=== PATIENT | male | born 1970 | race Two or more races ===

== ENCOUNTER 2019-12-05 07:49 | Outpatient (CLI) | payer OTHER | END 2019-12-05 10:42 | disposition home or self-care (01) | LOC: LAB 07:49 | DX: N40.1 Benign prostatic hyperplasia with lower urinary tract symptoms (principal); R10.84 Generalized abdominal pain; R78.9 Finding of unspecified substance, not normally found in blood; K85.92 Acute pancreatitis with infected necrosis, unspecified; E78.2 Mixed hyperlipidemia ==

== ENCOUNTER 2019-12-05 08:23 | Outpatient (CLI) | payer OTHER | END 2019-12-05 08:30 | disposition home or self-care (01) | LOC: TOM 08:23 | DX: R10.84 Generalized abdominal pain (principal); K57.32 Diverticulitis of large intestine without perforation or abscess without bleeding ==

== ENCOUNTER 2020-06-12 15:35 | Outpatient (CLI) | payer OTHER | END 2020-06-12 18:00 | disposition home or self-care (01) | LOC: LAB 15:35 | DX: Z03.818 Encounter for observation for suspected exposure to other biological agents ruled out (principal) ==

== ENCOUNTER → 2020-07-05 08:28 | Outpatient (CLI) | payer OTHER | END | disposition home or self-care (01) | LOC: LAB 08:28 | DX: Z20.818 Contact with and (suspected) exposure to other bacterial communicable diseases (principal); R05 Cough ==

== ENCOUNTER 2021-06-04 08:00 | Outpatient (CLI) | payer OTHER | END 2021-06-04 08:30 | disposition home or self-care (01) | LOC: PPH VACUNA 08:00 | PROVIDERS: ATTEND Emergency Medicine Pediatric Emergency Medicine | DX: Z23 Encounter for immunization (principal) ==

== ENCOUNTER 2021-06-04 15:57 | Outpatient (CLI) | payer OTHER | END 2021-06-04 16:02 | disposition home or self-care (01) | LOC: LAB 15:57 | DX: Z03.818 Encounter for observation for suspected exposure to other biological agents ruled out (principal) ==

== ENCOUNTER 2022-06-29 18:31 | Emergency (ER) | payer OTHER ==
[~2022-06-29] VITALS: Ht 165.1 cm; Wt 80.3 kg
== END 2022-06-29 20:37 | disposition home or self-care (01) ==
LOC: ER 18:31
DX: S61.221A Laceration with foreign body of left index finger without damage to nail, initial encounter (principal); W25.XXXA Contact with sharp glass, initial encounter; Y93.89 Activity, other specified; Y92.89 Other specified places as the place of occurrence of the external cause

== ENCOUNTER 2022-07-06 10:13 | Emergency (ER) | payer OTHER ==
[~2022-07-06] VITALS: Ht 167.6 cm; Wt 68.0 kg
== END 2022-07-06 12:32 | disposition home or self-care (01) ==
LOC: ER 10:13
DX: Z48.02 Encounter for removal of sutures (principal)

== ENCOUNTER 2023-02-17 11:07 | Emergency (ER) | payer OTHER ==
[~2023-02-17] VITALS: Ht 165.1 cm; Wt 79.8 kg
== END 2023-02-17 13:08 | disposition home or self-care (01) ==
LOC: ER 11:07
DX: S92.514A Nondisplaced fracture of proximal phalanx of right lesser toe(s), initial encounter for closed fracture (principal); X58.XXXA Exposure to other specified factors, initial encounter; Y93.89 Activity, other specified; Y92.89 Other specified places as the place of occurrence of the external cause; Y99.9 Unspecified external cause status

== ENCOUNTER 2025-03-26 19:59 | Emergency (ER) | payer OTHER ==
[~2025-03-26] VITALS: Ht 165.1 cm; Wt 72.6 kg
[2025-03-26] MEDS ORDERED: ACETAMINOPHEN 500 MG GEL..CAP PO ONE (21:45)
[2025-03-26] MEDS ORDERED: KETOROLAC TROMETHAMINE 60 MG VIAL IM ONE ×2 (21:45→21:58)
[2025-03-26] MEDS ORDERED: AMOX1TAB5 PO (22:53)
[2025-03-26] MEDS ORDERED: CEFTRIAXONE SODIUM 1,000 MG VIAL ONE (22:54)
[2025-03-26] MEDS ORDERED: CEFTRIAXONE SODIUM 1,000 MG VIAL IM ONE (23:00)
== END 2025-03-26 23:21 | disposition home or self-care (01) ==
LOC: ER 19:59
DX: S61.211A Laceration without foreign body of left index finger without damage to nail, initial encounter (principal); S61.213A Laceration without foreign body of left middle finger without damage to nail, initial encounter; W45.8XXA Other foreign body or object entering through skin, initial encounter; Y93.89 Activity, other specified; Y92.89 Other specified places as the place of occurrence of the external cause; Y99.9 Unspecified external cause status